=== PATIENT | female | born 2000 | race Caucasian/White ===

== ENCOUNTER 2020-05-29 17:23 | Outpatient (CLI) | payer MEDICAID ==
[~2020-05-29] VITALS: Ht 167.6 cm; Wt 81.6 kg
[2020-05-29] MEDS ORDERED: PROMETHAZINE12.5 M5 PO (17:36)
[2020-05-29 17:59] LABS: HEMATOCRIT 36.4 % (37.0-47.0); HEMOGLOBIN 12.7 g/dl (12.5-16.0); MEAN CELL VOLUME 94 fl (80.0-100.0); MEAN CORPUSCULAR HEMOGLOBIN 33 pg (27.0-31.0); MEAN CORPUSCULAR HGB CONC 35 g/dl (33.0-37.0); MEAN PLATELET VOLUME 10.2 fl (7.4-10.4); PLATELET COUNT 227 K/mm3 (130-400); RED BLOOD COUNT 3.86 M/mm3 (4.10-5.30); REDCELL DISTRIBUTION WIDTH-CV 11.9 % (11.5-14.5)
[2020-05-29 18:13] LABS: ALBUMIN 4.8 gm/dL (3.5-5.0); BILIRUBIN,TOTAL 0.4 mg/dL (0.0-1.0); CALCIUM 9.3 mg/dL (8.4-10.2); CREATININE, serum 0.54 (0.52-1.25)
--- NOTE | 2020-05-29 19:11 | NUR ---
Pt tolerated infusion of ns with zofran with no problem. Pt reports feeling a little better. Pt was able to consume a 12oz cup of ice chips with no n/v. IV was dc'd with cath intact, dressing was applied. Escorted ambulatory to exit.
== END 2020-05-29 19:55 | disposition home or self-care (01) ==
LOC: EUO 17:23
PROVIDERS: Obstetrics & Gynecology
DX: O21.1 Hyperemesis gravidarum with metabolic disturbance (principal); Z3A.01 Less than 8 weeks gestation of pregnancy
CPT/HCPCS: J2405; J7030

== ENCOUNTER 2021-01-01 06:41 | Inpatient (IN) | payer MEDICAID ==
[~2021-01-01] VITALS: Ht 165.1 cm; Wt 107.7 kg
[~2021-01-01 06:41] MED LIST: PROMETHAZINE12.5 M5 PO
[2021-01-06] VITALS (41 sets, daily range): BP systolic 93–141; BP diastolic 51–73; PULSE 71–110; TEMP 97.9–98.7
--- NOTE | 2021-01-06 08:00 | NUR ---
0735- Pt arrives on unit ambulatory with for scheduled induction. Oriented to room. Pt into bathroom to change into gowm. 0740- Pt into bed, EFM and TOCO on and tracing. VSS. Assessment completed. IV start without difficulty, LR bolus initiated.
[2021-01-06] MEDS ORDERED: ZOVIRAX400 MG PO ×2 (08:01→08:02)
[2021-01-06 08:30] LABS: BASO % 0.3 % (0.0-2.0); EOS # 0.1 K/mm3 (0.0-0.7); EOS % 0.5 % (0-4.0); GRAN % 74.7 % (42.2-75.2); HEMOGLOBIN 11.4 g/dl (12.5-16.0); LYMPH # 1.3 K/mm3 (1.2-3.4); LYMPH % 14.2 % (20.0-51.0); MEAN CELL VOLUME 93 fl (80.0-100.0); MEAN CORPUSCULAR HEMOGLOBIN 32 pg (27.0-31.0); MEAN CORPUSCULAR HGB CONC 34 g/dl (33.0-37.0); MEAN PLATELET VOLUME 10.6 fl (7.4-10.4); MONO # 0.9 K/mm3 (0.1-0.6); MONO % 9.7 % (1.7-9.3); PLATELET COUNT 212 K/mm3 (130-400); RED BLOOD COUNT 3.56 M/mm3 (4.10-5.30); REDCELL DISTRIBUTION WIDTH-CV 12.2 % (11.5-14.5)
--- NOTE | 2021-01-06 08:30 | NUR ---
0820- Roles at nurses station, reviews strip. To bedside to discuss induction and POC. Pt denies questions at this time.
[2021-01-06 08:38] LABS: HEMATOCRIT 33.2 % (37.0-47.0)
[2021-01-06 08:43] LABS: TRICYCLIC ANTIDEPRESS URINE NEGATIVE
--- NOTE | 2021-01-06 10:45 | NUR ---
1026- Pt up on BB.
--- NOTE | 2021-01-06 16:44 | NUR ---
1630 due to pt not in active labor after being on pitocin all day I visited with pt about possiblity of going home and coming back another day for IOL due to staffing and pt census is high with spontaneous labors. The pt is upset and said they scheduled this IOL because DEBRA is in and is getting ready to PCS and she needs to have her baby. SHe said if she is sent home she will refuse to come back here for delivery becasue she is too upset with this situation. I was very apologetic and attempted to to explain to pt that with not being in active labor after several hrs of pitocin coming back another day may be a better option. Pt states "if I leave here I am not coming back here to deliver; I will go to any other hospital, but I will not come here". I once again discussed safety of having a convenience IOL vs spontaneous labor pts and that we will do our best to accomadate her. At this time she declined to go home and wants to discuss her options with Dr Davis. I did communicate this with Dr Davis. Dr Davis will finish in evening clinic arond 1800 and will come over to evaluate pt
--- NOTE | 2021-01-06 17:13 | NUR ---
PT HAS BEEN OFFERED TO BE UP AND ON BIRTHING BALL OR STAND AT BEDSIDE, DECLINED. FOB CONTINUES TO BE AT BEDSID.
--- NOTE | 2021-01-06 17:17 | NUR ---
PT WAS UP OFF EFM, sve DONE PER April DON RN.
--- NOTE | 2021-01-06 17:32 | NUR ---
PT WAS OFF EFM AND UP TO BR TO VOID, PT IS STILL UPSET SHE IS NOT IN ACTIVE LABOR AND WAS GIVEN CHOICE TO GO HOME AND COME BACK TO L/D FOR ANOTHER ATTEMPT AT IOL OR SPONTANEOSU LABOR. STAFF HAS BEEN SUPPORTIVE TO PT
--- NOTE | 2021-01-06 18:15 | NUR ---
1811- Roles and this RN at bedside. Discussed plan of care and options for continuing with current plan or sending Pt home. Pt wants to stay and continue with current plan. MD allows Pt to eat a light dinner. Pt verbalizes understanding of POC.
--- NOTE | 2021-01-06 21:18 | NUR ---
Shawn Farooq JOB ORDER CLERK into room for epidural placement, see anesthesia record. Pt sitting on edge of bed.
--- NOTE | 2021-01-06 21:39 | NUR ---
Dr Maddox into room. SVE with no changes noted. AROM clear fluid, FSE placed.
--- NOTE | 2021-01-06 22:35 | NUR ---
Pt resting, turned to WR.
--- NOTE | 2021-01-06 23:45 | NUR ---
Pt sleeping soundly, unaware of nurse's presence in room until touched on the arm. BP's 90's /50's. Ephedrine given.
[2021-01-07] VITALS (34 sets, daily range): BP systolic 90–140; BP diastolic 46–72; PULSE 65–102; TEMP 98–99
--- NOTE | 2021-01-07 01:18 | NUR ---
FHT's with recurrent decelerations to 100's, occasionally with onset with peak of contraction, returning to baseline by end of contraction. SVE as noted. To WR.
--- NOTE | 2021-01-07 01:30 | NUR ---
FHT's continue with deceleratins. to [employer] Fowlers. Discuss with pt FHT's decelerations and what that might mean for laboring.
--- NOTE | 2021-01-07 01:58 | NUR ---
Pitocin gtt off.
--- NOTE | 2021-01-07 03:10 | NUR ---
Pitocin gtt restarted @ 6mu
--- NOTE | 2021-01-07 06:35 | NUR ---
0632 This RN at bedside positiong patient right lateral. 0635 Obdulia Reeder and this RN at bedside repositioning from left lateral to right lateral. SVE by Nader Urban /0. Obdulia Kaur at bedside. LR infusing. Oxygen started at 10L with simple mask. 0647 Dr Blackman called for delivery and on way.
--- NOTE | 2021-01-07 07:15 | NUR ---
0655 Dr. Blackman in room for delivery. Patient repositioned in foot plates and ready to start pushing with contractions. 0702 Pt starts pushing with contractions 0704 Spontaneous vaginal delivery of viable male . stimulated and bulb suctioned. Cord clamped by Dr. Blackman and cut by father of baby. Herman Damcio takes over care of . 0708 Spontaneous delivery of placenta. Pitocin bolus started per protocol. Fundal massage done by this RN. Firm/midline. Perineum intact. Epidural discontinued. Vital signs stable at this time. Plan of care and safety precautions discussed. Will continue to monitor.
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
[2021-01-08 03:10] VITALS: BP 117/55; PULSE 77
[2021-01-08 07:55] VITALS: BP 110/59; PULSE 80; TEMP 98.4
[2021-01-08] MEDS ORDERED: IBU800 M1 PO (08:55)
--- NOTE | 2021-01-08 10:12 | NUR ---
Initial visit; Patient thanked It Systems Administrator for offering congratulations and God's blessings for the of her son. It Systems Administrator thanked family for choosing [facility].
--- NOTE | 2021-01-10 07:40 | NUR ---
Patient's infant's cord blood was negative for illegal drugs in system.
== END 2021-01-08 12:20 | disposition home or self-care (01) | DRG 806 ==
LOC: LDR 01-06 06:41 → OB 01-06 07:28
PROVIDERS: ADMIT Obstetrics & Gynecology
PROC: 10E0XZZ Delivery of Products of Conception, External Approach (ICD-10-PCS; principal; 2021-01-07)
PROC: 10907ZC Drainage of Amniotic Fluid, Therapeutic from Products of Conception, Via Natural or Artificial Opening (ICD-10-PCS; 2021-01-07)
PROC: 3E033VJ Introduction of Other Hormone into Peripheral Vein, Percutaneous Approach (ICD-10-PCS; 2021-01-07)
DX: O99.72 Diseases of the skin and subcutaneous tissue complicating childbirth (principal); O98.32 Other infections with a predominantly sexual mode of transmission complicating childbirth; Z37.0 Single live birth; O99.344 Other mental disorders complicating childbirth; F32.A Depression, unspecified; A60.09 Herpesviral infection of other urogenital tract; L73.2 Hidradenitis suppurativa; O70.0 First degree perineal laceration during delivery; Z3A.39 39 weeks gestation of pregnancy
CPT/HCPCS: J2405; J2590; J2795; J7120